=== PATIENT | male | born 1985 | race Caucasian/White ===

== ENCOUNTER 2020-06-12 21:49 | Emergency (ER) | payer OTHER ==
[~2020-06-12] VITALS: Ht 182.9 cm; Wt 130.9 kg
[2020-06-13 00:21] LABS: ALBUMIN 4.3 g/dL (3.4-5.0); ALKALINE PHOSPHATASE 70 U/L (46-116); ALT/SGPT 61 U/L (16-63); AST/SGOT 28 U/L (15-37); CALCIUM 9.4 mg/dL (8.5-10.1); CARBON DIOXIDE 21.4 mmol/L (21-32); CHLORIDE SERUM 101 mmol/L (98-107); CREATININE SERUM 0.8 mg/dL (0.7-1.3); GFR1 > 60 mL/min; GLUCOSE SERUM 110 mg/dL (74-106); LIPASE 53 IU/L (73-393); POTASSIUM SERUM 4.1 mmol/L (3.5-5.1); SODIUM SERUM 135 mmol/L (136-145)
[2020-06-13 00:27] LABS: TOTAL PROTEIN, SERUM 8.6 g/dL (6.4-8.2)
[2020-06-13 00:37] LABS: BASOPHIL % 0.4 % (0.2-1.5); PLATELET COUNT 148 x10^3mcL (152-348); RED CELL DISTRIBUTION WIDTH 13.6 % (12.1-16.2)
[2020-06-13] MEDS ORDERED: [UNRECOGNIZED DRUG - OTHER] PO (01:13)
[2020-06-13] MEDS ORDERED: ONDANSETRON4 M3 PO (01:13)
[2020-06-13] MEDS ORDERED: PEPCID AC20 M2 PO (01:17)
[2020-06-13 02:33] VITALS: BP 104/53
[2020-06-13 02:49] LABS: microscopic required? YES; urine erythrocyte TRACE (NEGATIVE)
== END 2020-06-13 02:33 | disposition home or self-care (01) ==
LOC: ED 21:49
PROVIDERS: Student in an Organized Health Care Education/Training Program
DX: K52.9 Noninfective gastroenteritis and colitis, unspecified (principal)
CPT/HCPCS: J0696; J2270; J7030; Q9967